=== PATIENT | female | born 2000 | race Caucasian/White ===

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

== ENCOUNTER 2023-05-25 23:16 | Emergency (ER) | payer OTHER ==
[~2023-05-25] VITALS: Ht 160 cm; Wt 56.2 kg
[2023-05-25 23:20] VITALS: BP 106/81; PULSE 90; RESP 16; TEMP 98; O2SAT 100
[2023-05-26 00:24] LABS: APPEARANCE,URINE CLEAR (CLEAR); BILIRUBIN,URINE NEGATIVE (NEGATIVE); BLOOD, URINE NEGATIVE (NEGATIVE); COLOR,URINE YELLOW (YELLOW); LEUKOCYTE ESTERASE ,URINE NEGATIVE (NEGATIVE); NITRITE, URINE NEGATIVE (NEGATIVE); PROTEIN,URINE NEGATIVE (NEGATIVE); UGLUCOSE NEGATIVE (NEGATIVE); UROBILINOGEN,URINE 0.2 EU/dL (0.2 - 1)
[2023-05-26 01:49] LABS: BASOPHILS % (AUTO) 0.4 % (0.0-2.0); EOSINOPHILS # (AUTO) 0.3 K/uL (0-0.4); HEMOGLOBIN 12.7 g/dL (12.0-16.0); NEUTROPHILS # (AUTO) 6.7 K/uL (1.8-7.7); RED CELL DISTRIBUTION WIDTH 12.5 % (11.6-13.7)
[2023-05-26 02:05] LABS: ANION GAP 9.8 (8-16); CALCIUM 8.5 mg/dL (8.5-10.1); CARBON DIOXIDE 26.4 mmol/L (21-32); CREATININE 0.7 mg/dL (0.6-1.3); EOSINOPHILS % (AUTO) 2.5 % (0.0-4.0); HEMATOCRIT 36.5 % (36-48); LYMPHOCYTES # (AUTO) 2.5 K/uL (2.5-16.5); LYMPHOCYTES % (AUTO) 24.9 % (20.5-51.1); MEAN CORPUSCULAR HEMOGLOBIN 31 pg (27-31); MEAN CORPUSCULAR HGB CONC 35 g/dL (33-37); MEAN CORPUSCULAR VOLUME 89.3 fL (80-94); MONOCYTES # (AUTO) 0.7 K/uL (0.8-1.0); NEUTROPHILS % (AUTO) 65.2 % (42.2-75.2); PLATELET COUNT (AUTO) 185 K/uL (140-450); POTASSIUM 3.2 mmol/L (3.5-5.1); RED BLOOD CELL COUNT(AUTO) 4.09 MIL/uL (4.20-5.40); WHITE BLOOD COUNT (AUTO) 10.2 K/uL (4.8-10.8)
[2023-05-26 02:11] LABS: ALBUMIN 3.3 g/dL (3.4-5.0); BILIRUBIN,DIRECT 0.1 mg/dL (0.0-0.3); TOTAL BILIRUBIN 0.3 mg/dL (0.0-1.0); TOTAL PROTEIN, SERUM 7.4 g/dL (6.4-8.2)
[2023-05-26] MEDS: POTASSIUM CHLORIDE 10 MEQ TABER PO ONE (03:30)
[2023-05-26 05:22] VITALS: BP 124/75; PULSE 86; RESP 18; TEMP 98.4; O2SAT 98
== END 2023-05-26 04:43 | disposition home or self-care (01) ==
LOC: MED 23:16
DX: R10.30 Lower abdominal pain, unspecified (principal); J45.909 Unspecified asthma, uncomplicated; Z79.899 Other long term (current) drug therapy
CPT/HCPCS: 36415; 80048; 80076; 81003; 81025; 83690; 85025; 99284

== ENCOUNTER 2024-01-22 22:02 | Emergency (ER) | payer OTHER ==
[~2024-01-22] VITALS: Ht 160 cm; Wt 65.8 kg
[2024-01-22 22:04] VITALS: BP 92/51; PULSE 82; RESP 18; TEMP 98; O2SAT 99
[2024-01-22 23:05] LABS: APPEARANCE,URINE CLEAR (CLEAR); BILIRUBIN,URINE NEGATIVE (NEGATIVE); BLOOD, URINE NEGATIVE (NEGATIVE); COLOR,URINE YELLOW (YELLOW); LEUKOCYTE ESTERASE ,URINE NEGATIVE (NEGATIVE); NITRITE, URINE NEGATIVE (NEGATIVE); PH,URINE 6.5 (5.0-9.0); PROTEIN,URINE NEGATIVE (NEGATIVE); UGLUCOSE NEGATIVE (NEGATIVE); UROBILINOGEN,URINE 0.2 EU/dL (0.2 - 1)
[2024-01-22 23:46] VITALS: BP 105/62; PULSE 83; RESP 16; TEMP 98; O2SAT 98
== END 2024-01-22 23:46 | disposition home or self-care (01) ==
LOC: MED 22:02
DX: O26.893 Other specified pregnancy related conditions, third trimester (principal); R10.10 Upper abdominal pain, unspecified; O99.513 Diseases of the respiratory system complicating pregnancy, third trimester; J45.909 Unspecified asthma, uncomplicated; Z3A.32 32 weeks gestation of pregnancy
CPT/HCPCS: 81003; 99283